=== PATIENT | male | born 1965 | race Two or more races ===

== ENCOUNTER → 2021-06-18 | Outpatient (CLI) | payer MEDICAID ==
--- NOTE | 2021-06-18 14:30 | RAD ---
EXAM: Bilateral knees, 3 views. HISTORY: Pain. COMPARISON: None. FINDINGS: 3 views of both knees are obtained. There is severe left medial compartment joint space marc rowing, subchondral sclerosis and spurring. There is mild medial left patellofemoral compartment join t space narrowing and spurring. There is mild to moderate medial compartment joint space narrowing an d spurring involving the right knee. There is slight left genu varus. There is a small left knee effu joni. IMPRESSION: 1. Severe medial compartment and mild lateral and patellofemoral compartment osteoarthritis of the le ft knee with slight genu varus and small joint effusion. 2. Siae-ve-[id number] medial compartment osteoarthritis of the right knee. Electronically signed by: Silva Coley MD (06/18/2021 2:27 PM) [id number]
== END ==
LOC: RAD 14:13
PROVIDERS: ATTEND Physician Assistant
DX: M17.12 Unilateral primary osteoarthritis, left knee (principal); M17.11 Unilateral primary osteoarthritis, right knee; M21.162 Varus deformity, not elsewhere classified, left knee; M25.462 Effusion, left knee
CPT/HCPCS: 73560; 73565